=== PATIENT | female | born 1965 | race Caucasian/White ===

== ENCOUNTER 2019-04-28 21:41 | Emergency (ER) | payer OTHER ==
[~2019-04-28] VITALS: Ht 167.6 cm; Wt 51.5 kg
[~2019-04-28 21:41] MED LIST: ALPR0.5T PO; ERGO500014 PO
--- NOTE | 2019-04-28 21:50 | NUR ---
PT BIBSELF C/O LOWERD BACK PAIN WITH BURNING ON URINATION AND "GREEN" VAGINAL DISCHARGE W/ PELVIC PAIN X 4 DAYS. PT AOX4. NAD NOTED. RESP EVEN AND UNLABORED. FRIEND AT BEDSIDE. WILL CONTINUE TO MONITOR.
[2019-04-28] MEDS ORDERED: IBUPROFEN 400 MG TABLET ONE (22:27)
[2019-04-28] MEDS ORDERED: IBUPROFEN 400 MG TABLET PO ONE (22:30)
[2019-04-28 22:31] LABS: APPEARANCE,URINE CLEAR (CLEAR); BILIRUBIN,URINE NEGATIVE (NEGATIVE); BLOOD, URINE TRACE Ery/uL (NEGATIVE); COLOR,URINE YELLOW (YELLOW); KETONES,URINE NEGATIVE (NEGATIVE); LEUKOCYTE ESTERASE ,URINE 3+ (NEGATIVE); NITRITE, URINE NEGATIVE (NEGATIVE); PROTEIN,URINE NEGATIVE (NEGATIVE); UGLUCOSE NEGATIVE (NEGATIVE); UROBILINOGEN,URINE 0.2 EU/dL (0.2)
[2019-04-28 22:44] LABS: BACTERIA,URINE Rare /HPF (None Seen); RBC,URINE 0-2 /HPF (0-2); SQUAMOUS EPITHELIAL CELL,UR Rare /HPF (None Seen); WBC,URINE TOO NUMEROUS TO COUN /HPF (0-3)
--- NOTE | 2019-04-28 23:01 | NUR ---
PHLEB AT BEDSIDE FOR LAB DRAW
[2019-04-28 23:13] LABS: BASOPHILS % (AUTO) 0.5 % (0.0-2.0); EOSINOPHILS % (AUTO) 1.9 % (0.0-6.0); HEMATOCRIT 40 % (33-45); HEMOGLOBIN 13.5 g/dL (11.5-14.8); LYMPHOCYTES # (AUTO) 2.1 /CMM (0.8-4.8); LYMPHOCYTES % (AUTO) 33.6 % (20.0-44.0); MEAN CORPUSCULAR HGB CONC 34 g/dl (31.0-36.0); MEAN CORPUSCULAR VOLUME 97 fL (82-100); MONOCYTES # (AUTO) 0.5 /CMM (0.1-1.30); MONOCYTES % (AUTO) 8.8 % (2.0-12.0); NEUTROPHILS # (AUTO) 3.4 /CMM (1.8-8.9); NEUTROPHILS % (AUTO) 55.2 % (43.0-81.0); PLATELET COUNT (AUTO) 298 /CMM (150-450); RED BLOOD CELL COUNT(AUTO) 4.12 MIL/uL (4.0-5.2); WHITE BLOOD COUNT (AUTO) 6.1 K/uL (4.3-11.0)
[2019-04-28 23:21] LABS: CREATININE 0.5 mg/dL (0.6-1.3); POTASSIUM 3.6 mmol/L (3.5-5.1)
[2019-04-29] MEDS ORDERED: IV NS 0.9% 1,000 ML BAG IV ONE
[2019-04-29] MEDS ORDERED: CEPHALEXIN MONOHYDRATE 500 MG CAPSULE PO ONE ×2 (00:54→01:00)
--- NOTE | 2019-04-29 01:04 | NUR ---
IV removed. Catheter intact and site benign. Pressure and 4x4 applied to site. No bleeding noted.Patient discharged to home in stable condition. Written and verbal after care instructions given. Patient verbalizes understanding of instruction.
[2019-04-29 01:06] VITALS: BP 116/82
== END 2019-04-29 01:07 | disposition home or self-care (01) ==
LOC: ER 21:55
DX: N39.0 Urinary tract infection, site not specified (principal); N76.0 Acute vaginitis; F41.9 Anxiety disorder, unspecified; Z98.890 Other specified postprocedural states; Z88.8 Allergy status to other drugs, medicaments and biological substances; Z79.899 Other long term (current) drug therapy
CPT/HCPCS: 36415; 80048; 81001; 84703; 85025; 87086; 87210; 96360; 99283; A6402; J7030; 81000-TC